=== PATIENT | male | born 1960 | race Caucasian/White ===

== ENCOUNTER 2019-10-24 19:32 | Outpatient (CLI) | payer MEDICAID | END 2019-10-24 23:59 | disposition critical access hospital (66) | LOC: EMS 19:32 | PROVIDERS: ATTEND Surgery | DX: R04.2 Hemoptysis (principal) | CPT/HCPCS: A0425; A0429; A0999 ==

== ENCOUNTER 2019-10-24 19:47 | Emergency (ER) | payer MEDICAID ==
--- NOTE | 2019-10-24 19:34 | ED Physician Documentation ---
History of Present Illness - Stated complaint Stated Complaint: COUGHING UP BLOOD - History obtained from History obtained from: Patient (The patient is a 59-year-old male who arrives by ambulance after he felt blood in his mouth he reports he was exposed to someone who has Covid about a month ago and he is terrified that he could have covid, The patient reports that otherwise he feels fine he is unsure if he is swallowing blood or coughing up blood or vomiting blood he denies tobacco alcohol or drug use he denies taking any anticoagulants or antiplatelets he denies any fevers, chills, night sweats denies any chest pain denies any abdominal pain denies any syncopal episodes denies any headache, neck pain, fever, rashes, shortness of breath. He did not try to look for the source of the blood prior to arrival he called 911 immediately and arrives via ambulance.) Review of Systems Ten Systems: 10 systems reviewed and negative Constitutional: reports: Reviewed and negative Eyes: reports: Reviewed and negative Ears: reports: Reviewed and negative Nose: reports: Reviewed and negative Throat: reports: Other (bleeding in mouth.) Cardiac: reports: Reviewed and negative Respiratory: reports: Reviewed and negative GI: reports: Reviewed and negative : reports: Reviewed and negative Skin: reports: Reviewed and negative Musculoskeletal: reports: Reviewed and negative Neurologic: reports: Reviewed and negative Psychiatric: reports: Reviewed and negative Endocrine: reports: Reviewed and negative Immunocompromised: reports: Reviewed and negative PD PAST MEDICAL HISTORY - Allergies Allergies/Adverse Reactions: Allergies Allergy/AdvReac Type Severity Reaction Status Date / Time Penicillins Allergy Anaphylaxis Verified 10/24/19 20:03 PD ED PE NORMAL - Vitals Vital signs reviewed: Yes - General General: Alert and oriented X 3, No acute distress, Well developed/nourished - HEENT HEENT: PERRL, EOMI, Ears normal, Moist mucous membranes, Pharynx benign, Other (acute avulsion of tooth number 2, posterior maxillary right sided dental avulsion, bleeding controlled with direct pressure. 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 ) Departure - Departure Disposition: 01 Home, Self Care Clinical Impression: Avulsion of tooth Qualifiers: Encounter type: initial encounter Qualified Code(s): S03.2XXA - Dislocation of tooth, initial encounter Condition: Stable Instructions: ED Fx Tooth Follow-Up: your, dentist [Other] - Tomorrow Comments: call your dentist tomorrow.
[2019-10-24 20:10] VITALS: BP 177/97
== END 2019-10-24 20:30 | disposition home or self-care (01) ==
LOC: EDUNIT# → ED 19:47
DX: S03.2XXA Dislocation of tooth, initial encounter (principal); X58.XXXA Exposure to other specified factors, initial encounter
CPT/HCPCS: 99282; 99283

== ENCOUNTER 2020-01-09 16:00 | Outpatient (CLI) | payer MEDICAID | END 2020-01-09 16:01 | disposition EMS.NT | LOC: EMS 16:00 | PROVIDERS: ATTEND Surgery | DX: R04.0 Epistaxis (principal) ==

== ENCOUNTER 2020-01-09 17:40 | Outpatient (CLI) | payer MEDICAID | END 2020-01-09 17:41 | disposition critical access hospital (66) | LOC: EMS 17:40 | PROVIDERS: ATTEND Surgery | DX: R04.0 Epistaxis (principal) | CPT/HCPCS: A0425; A0429 ==

== ENCOUNTER 2020-01-09 18:05 | Emergency (ER) | payer MEDICAID ==
[2020-01-09] MEDS ORDERED: LIDOCAINE-EPINEPH-TETRACAINE 3 ML SYRINGE TOP STA (18:11)
--- NOTE | 2020-01-09 18:12 | ED Physician Documentation ---
PD HPI HEENT - Stated complaint Stated Complaint: EPSTAXIS - History obtained from History obtained from: Patient (Healthy 59-year-old gentleman is had several hours of bleeding from the right nares. No trauma. No history of anticoagulation or antithrombotic illnesses.) Review of Systems Constitutional: reports: Reviewed and negative Eyes: reports: Reviewed and negative Ears: reports: Reviewed and negative PD PAST MEDICAL HISTORY - Past Surgical History Past Surgical History: No - Allergies Allergies/Adverse Reactions: Allergies Allergy/AdvReac Type Severity Reaction Status Date / Time Penicillins Allergy Anaphylaxis Verified 01/09/20 18:11 - Social History Does the pt smoke?: No Smoking Status: Never smoker Does the pt drink ETOH?: No Does the pt have substance abuse?: No - Immunizations Immunizations are current?: Yes - POLST Patient has POLST: No PD ED PE NORMAL - Vitals Vital signs reviewed: Yes - General General: Alert and oriented X 3, No acute distress - HEENT HEENT: Other (There is an active slow nosebleed on the right nares) - Neck Neck: Supple, no meningeal sign, No bony TTP - Neuro Neuro: Alert and oriented X 3, Normal speech Results - Vitals Vitals: Vital Signs - 24 hr 01/09/20 18:11 Temperature 36.7 C Heart Rate 125 H Respiratory 17 Rate Blood Pressure 157/91 H O2 Saturation 97 Oxygen O2 Source Room air Procedures - Epistaxis Site: Right, Anterior Preparation: Clots removed, Other (LET) Treatment: Silver Nitrate Other: Observed - no bleeding Departure - Departure Disposition: 01 Home, Self Care Clinical Impression: Epistaxis Condition: Good Instructions: ED Nosebleed Comments: Call your doctor to arrange a follow-up appointment, make the next available appointment. In the interim, return anytime if worse or if new symptoms develop.
[2020-01-09] MEDS ORDERED: SILVER NITRATE APPLICATOR TOP STA ×2 (18:21→18:51)
[2020-01-09] MEDS ORDERED: TRANEXAMIC ACID 1,000 MG/10 ML VIAL NAS STA (18:51)
[2020-01-09 19:20] VITALS: BP 158/99
== END 2020-01-09 20:00 | disposition home or self-care (01) ==
LOC: EDUNIT# → ED 18:05
DX: R04.0 Epistaxis (principal)
CPT/HCPCS: 30901; 99283

== ENCOUNTER 2023-06-15 13:29 | Emergency (ER) | payer MEDICAID ==
[2023-06-15 13:37] VITALS: BP 150/88; O2SAT 97
--- NOTE | 2023-06-15 13:51 | ED Physician Documentation ---
History of Present Illness - Stated complaint Stated Complaint: NOSE BLEED - Chief complaint Chief Complaint: Heent - Additonal information Additional information: 62-year-old male presents emergency department for evaluation of 2 episodes of right-sided epistaxis. He states that years ago he had right-sided nosebleed that required cautery in the ER. Yesterday without any trauma, nose picking or nose blowing he began having bleeding from the right nares. He was able to get it stopped after a few minutes. This morning he had a similar event that lasted about 15 minutes before it stopped. No active bleeding at the time he is in the emergency department. He is not anticoagulated. Takes no prescribed medications. Denies alcohol abuse or NSAID overuse Review of Systems Nose: reports: Epistaxis Throat: reports: Reviewed and negative Cardiac: reports: Reviewed and negative PD PAST MEDICAL HISTORY - Past Medical History Past Medical History: No Cardiovascular: None Respiratory: None Neuro: None Endocrine/Autoimmune: None GI: None : None HEENT: None Psych: None Musculoskeletal: None Derm: None - Past Surgical History Past Surgical History: No - Allergies Allergies/Adverse Reactions: Allergies Allergy/AdvReac Type Severity Reaction Status Date / Time Penicillins Allergy Anaphylaxis Verified 06/15/23 13:32 - Social History Does the pt smoke?: No Smoking Status: Never smoker Does the pt drink ETOH?: No Does the pt have substance abuse?: No - Immunizations Immunizations are current?: Yes - POLST Patient has POLST: No PD ED PE NORMAL - General General: Alert and oriented X 3, No acute distress, Well developed/nourished - HEENT HEENT: Pharynx benign, Other (No blood noted in the posterior oropharynx. Right lateral anterior nares with some friable nonbleeding tissue. No septal hematoma. No active bleeding noted) - Neck Neck: Supple, no meningeal sign Results - Vitals Vitals: Vital Signs - 24 hr 06/15/23 13:33 Temperature 36.7 C Heart Rate 100 Respiratory 16 Rate Blood Pressure 150/88 H O2 Saturation 97 Oxygen O2 Source Room air PD Medical Decision Making - ED course Complexity details: d/w patient ED course: 62-year-old male here for evaluation of nosebleed that occurred yesterday and then this morning. It occurs in the right nares where he has historically had cautery for nosebleeding. On exam there is some friable nonbleeding tissue on the lateral anterior right nares. Given that is not bleeding I do not feel that he would benefit from cautery or silver nitrate at this point. I discussed with him routine conservative measures to manage the nosebleed at home and the usual emergent return precautions for failure of bleeding to resolve. I did make the recommendation for ENT follow-up as this may become a more recurrent problem. Departure - Departure Disposition: 01 Home, Self Care Clinical Impression: Bleeding nose Condition: Stable Record reviewed to determine appropriate education?: Yes Instructions: ED Nosebleed Comments: Terry there is some friable or raw tissue on your right inner nares. This is likely where you are bleeding earlier in the day. However it is no longer bleeding and I do not feel that you would benefit from any attempts to cauterize it. If you have another episode of bleeding at home I recommend that you hold firm gentle pressure over your nose for about 15 to 30 minutes. If bleeding persist beyond this then present to the emergency department. You are most likely bleeding from the site that is been cauterized in the past. This may be some scar tissue. I would recommend that you request referral to an ear nose throat doctor for further evaluation.
== END 2023-06-15 13:52 | disposition home or self-care (01) ==
LOC: ED 13:29
DX: R04.0 Epistaxis (principal)
CPT/HCPCS: 99281; 99283

== ENCOUNTER 2023-12-24 15:51 | Emergency (ER) | payer MEDICAID ==
[2023-12-24 16:12] VITALS: BP 152/94; O2SAT 97
--- NOTE | 2023-12-24 17:05 | ED Physician Documentation ---
History of Present Illness - Stated complaint Stated Complaint: NOSE BLEED - Chief complaint Chief Complaint: Heent - History obtained from History obtained from: Patient - History of Present Illness Timing: Today Pain level max: 0 Pain level now: 0 - Additonal information Additional information: 63-year-old male states that he had a nosebleed from the right nare earlier today. Stopped after about 20 minutes. No bleeding since. Not on blood thinners. No trauma. Not lightheaded, dizzy. No chest pain, no shortness of breath. Asymptomatic now. Review of Systems Nose: denies: Rhinorrhea / runny nose, Congestion, Sinus pressure / pain Respiratory: denies: Cough PD PAST MEDICAL HISTORY - Past Medical History Cardiovascular: None Respiratory: None Neuro: None Endocrine/Autoimmune: None GI: None : None HEENT: None Psych: None Musculoskeletal: None Derm: None - Past Surgical History Past Surgical History: No - Allergies Allergies/Adverse Reactions: Allergies Allergy/AdvReac Type Severity Reaction Status Date / Time Penicillins Allergy Anaphylaxis Verified 12/24/23 16:38 - Social History Does the pt smoke?: No Smoking Status: Never smoker Does the pt drink ETOH?: No Does the pt have substance abuse?: No - Immunizations Immunizations are current?: Yes - POLST Patient has POLST: No PD ED PE NORMAL - Vitals Vital signs reviewed: Yes - General General: Alert and oriented X 3, No acute distress - HEENT HEENT: Moist mucous membranes, Other (Small clot on the medial wall of the right nare. Otherwise normal exam of the nose) - Neck Neck: Supple, no meningeal sign - Cardiac Cardiac: RRR, Strong equal pulses - Respiratory Respiratory: No respiratory distress, Clear bilaterally - Derm Derm: Warm and dry - Neuro Neuro: Alert and oriented X 3 - Psych Psych: Normal mood, Normal affect Results - Vitals Vitals: Vital Signs - 24 hr 12/24/23 16:02 Temperature 37.0 C Heart Rate 117 H Respiratory 18 Rate Blood Pressure 152/94 H O2 Saturation 97 Oxygen O2 Source Room air PD Medical Decision Making - ED course Complexity details: considered differential, d/w patient ED course: Patient with epistaxis at home that resolved on its own. Is not on anticoagulants. No active bleeding here. No indication for further workup at this time. Patient counseled regarding signs and symptoms for which I believe and urgent re-evaluation would be necessary. Patient with good understanding of and agreement to plan and is comfortable going home at this time This document was made in part using voice recognition software. While efforts are made to proofread this document, sound alike and grammatical errors may occur. Departure - Departure Disposition: 01 Home, Self Care Clinical Impression: Epistaxis Condition: Good Instructions: ED Nosebleed Follow-Up: your,doctor as needed [Other] Comments: Please follow-up with your doctor as needed for any further care. You do not have any bleeding in your nose currently. Return if you worsen. Forms: PCP List Discharge Date/Time: 12/24/23 17:11
== END 2023-12-24 17:11 | disposition home or self-care (01) ==
LOC: ED 15:51
DX: R04.0 Epistaxis (principal)
CPT/HCPCS: 99281; 99283